=== PATIENT | female | born 1990 | race Caucasian/White ===

== ENCOUNTER 2018-08-03 20:54 | Emergency (ER) | payer BC ==
[~2018-08-03] VITALS: Ht 177.8 cm; Wt 68.2 kg
[2018-08-03 20:57] VITALS: TEMP 98.5
[2018-08-03] MEDS ORDERED: OMEGA-3 1000 MG1 CAP PO (21:29)
[2018-08-03] MEDS ORDERED: PRENATABS FA1 TAB PO (21:30)
[2018-08-03 22:27] VITALS: BP 114/64; PULSE 90
== END 2018-08-03 22:50 | disposition home or self-care (01) ==
LOC: COL.ER 20:54
DX: S02.2XXA Fracture of nasal bones, initial encounter for closed fracture (principal); W21.07XA Struck by softball, initial encounter; Y92.830 Public park as the place of occurrence of the external cause; Y93.64 Activity, baseball

== ENCOUNTER 2019-10-27 15:56 | Emergency (ER) | payer BC ==
[~2019-10-27] VITALS: Ht 177.8 cm; Wt 84.1 kg
[~2019-10-27 15:56] MED LIST: ACYCLOVIR; ANTIVERT 12.512.5 MG PO; BCP TD; OMEGA-3 1000 MG1 CAP PO; PRENATABS FA1 TAB PO
[2019-10-27 16:02] VITALS: TEMP 98.1
--- NOTE | 2019-10-27 17:00 | NUR ---
Patient in ER with complaint of blurred vision, loss of vision, slurred/difficult speech, and numbness/tingling in right arm/hand. Patient said these symptoms lasted around 20-30 minutes following OB appointment today at 1400. Patient currently denies any complaints but is visibly tearful/anxious. , 36.6. Denies any or medical complications. NST obtained. FHR 130s, moderate variability, +accelerations, no decelerations noted. Mild contractions noted by toco, abdomen palpates mild. Patient reports good movement. Audible movement during NST. Patient denies vaginal bleeding, leaking of fluid, cramping/contractions, or any other concerns. Will notify that patient is in ER for evaluation.
[2019-10-27 17:35] LABS: COLLECTION METHOD CLEAN CATCH
[2019-10-27 17:44] LABS: PH 7 (5-8); SQUAMOUS EPITHELIAL None Seen /hpf; URINE APPEARANCE Clear; URINE BACTERIA None Seen /hpf; URINE BILIRUBIN Negative (NEGATIVE); URINE BLOOD Negative (NEGATIVE); URINE COLOR Straw; URINE GLUCOSE Negative (NEGATIVE); URINE KETONE Negative (NEGATIVE); URINE LEUKOCYTE ESTERASE Negative (NEGATIVE); URINE NITRATE Negative (NEGATIVE); URINE PROTEIN(semi-quant) Negative (NEGATIVE); URINE RBC 0-2 /hpf; URINE UROBILINOGEN Negative (NEGATIVE)
[2019-10-27 19:10] VITALS: BP 125/78; PULSE 83
== END 2019-10-27 19:18 | disposition home or self-care (01) ==
LOC: COL.ER 15:56
PROVIDERS: Family Medicine
DX: O26.893 Other specified pregnancy related conditions, third trimester (principal); H54.7 Unspecified visual loss; Z3A.37 37 weeks gestation of pregnancy

== ENCOUNTER 2019-11-17 08:25 | Inpatient (IN) | payer BC ==
[~2019-11-17] VITALS: Ht 177.8 cm; Wt 85.9 kg
[2019-11-20] VITALS (45 sets, daily range): BP systolic 115–164; BP diastolic 56–885; PULSE 60–118; TEMP 97.5–98.4
[2019-11-20] MEDS ORDERED: NATURAL IRON65 MG (07:52)
[2019-11-20 08:26] LABS: HEMOGLOBIN 11.2 g/dl (12.5-16.0); MEAN CELL VOLUME 98 fl (80.0-100.0); MEAN CORPUSCULAR HEMOGLOBIN 33 pg (27.0-31.0); MEAN CORPUSCULAR HGB CONC 34 g/dl (33.0-37.0); MEAN PLATELET VOLUME 10.7 fl (7.4-10.4); PLATELET COUNT 193 K/mm3 (130-400); RED BLOOD COUNT 3.35 M/mm3 (4.10-5.30); REDCELL DISTRIBUTION WIDTH-CV 12.5 % (11.5-14.5)
[2019-11-20 08:27] LABS: HEMATOCRIT 32.7 % (37.0-47.0)
--- NOTE | 2019-11-20 08:47 | NUR ---
0715 - Pt arrives ambulatory to unit with spouse for scheduled induction of labor. Pt changed into gown, EFM explained and placed. Pt anxious, denies leaking of fluid, vaginal bleeding, reports good movement and mild occasional contractions. Assessment complete. IV started in left forearm at 0755, LR started per protocol, Pitocin started at 2mu/ml per protocol. 0805 - Lab to pt bedside to draw labs. Consents discussed and signed. Questions invited and answered. Call light at side, pt denies further needs at this time. 0895 - Dr. Hood notified that pt on unit and pitocin started.
[2019-11-20 08:57] LABS: BAND 16 % (0-10); LYMPHOCYTE 15 % (20.0-51.0); METAMYELOCYTE 2 % (0-0); NEUTROPHILS 66 % (42.0-75.2); PLATELET ESTIMATE NORMAL (NORMAL)
--- NOTE | 2019-11-20 10:04 | NUR ---
0942 - Dr. Hood to pt bedside. Discussed plan of care with pt. AROM by provider at 0947. SVE per provider . Contine current plan.
--- NOTE | 2019-11-20 10:54 | NUR ---
Pt requesting epidural. Padmini Ybarra CRNA notified.
--- NOTE | 2019-11-20 11:14 | NUR ---
Padmini Ybarra CRNA to pt bedside at this time. Discussed epidural with pt, pt desires epidural. Pt repositioned to sitting on bedside, O2 sat monitor on and tracing. 1124 - Epidural test dose given. Pt repositioned to reclined in bed. Pt tolerated procedure well, denies needs at this time.
--- NOTE | 2019-11-20 11:49 | NUR ---
SVE 4-5/90/0. Pt still uncomfortable with check, will insert Wells catheter in about 15 minutes. Pt resting WL.
--- NOTE | 2019-11-20 13:45 | NUR ---
SVE 6/90/0. Pt comfortable with epidural, repositioned to sitting upright in cross legged position. Dr. Hood notified of progress.
--- NOTE | 2019-11-20 15:52 | NUR ---
SVE 8-/0. Dr. Hood notified of progress. See physician notification.
--- NOTE | 2019-11-20 18:43 | NUR ---
1630 - SVE 0. Dr. Hood notified. 1640 - RN at bedside, pushing with pt with contractions. 1650 - Wells removed, 200ml urine. 1730 - Dr. Hood called to check in on pt progress. Report given that pt pushing well, RN can see about 1.5 in of baby's head with push. Dr. Hood on way to unit. 1750 - Dr. Hood at bedside. Orders to break down bed and prepare pt for delivery. Nicholas Ramirez RN of nursery notified. 180 - Viable female delivered spontaneously and placed on mother's abdomen. Nuchal cord x1. Cord blood collected. Care of infant transferred to Nicholas Ramirez RN of nursery. 180 - Placenta delivered spontaneously by Dr. Hood. Red Robbin used by physician, 50ml urine drained from bladder. 2nd degree repair performed by Dr. Hood. pitocin started per protocol. 1814 - Care of pt transferred to Bridger Jean RN.
[2019-11-21 02:30] VITALS: BP 129/76; PULSE 72; TEMP 98.9
[2019-11-21 05:10] VITALS: BP 112/67; PULSE 89; TEMP 98.4
[2019-11-21 07:55] VITALS: BP 127/85; PULSE 72; TEMP 97.8
[2019-11-21 12:45] VITALS: BP 144/88; PULSE 108; TEMP 97.9
[2019-11-21 17:15] VITALS: BP 120/70; PULSE 77; TEMP 97.8
[2019-11-21 18:45] VITALS: BP 122/73; PULSE 82; TEMP 97.9
[2019-11-22] VITALS (9 sets, daily range): BP systolic 120–134; BP diastolic 68–81; PULSE 69–90; TEMP 97.9–98.3
--- NOTE | 2019-11-22 10:25 | NUR ---
Dr Dobbs at bedside and labia examined. Large hematoma noted. Options discussed with pt and and plan is to do I and D of vulvar hematoma. IV started to left hand, LR infusing per Fadia TIN PLATER order. Consent signed. 1110:Pt taken to OR. 1116:TO OR and on table. Prepped and betadine scrub used. I&D of vulvar hematoma and 300cc clot evacuated. Pen Laureen drain placed. Will continue to monitor and ice pack in place. 1202:straight catheter per Dr Dobbs. approximately 1000c urine noted 1215:Pt to stretcher and taken to room 207. Pt alert and oriented.
[2019-11-22 15:48] LABS: BASO # 0.1 (0.0-0.2); BASO % 0.5 % (0.0-2.0); EOS # 0.1 (0.0-0.7); GRAN # 8.9 (1.4-6.5); GRAN % 76.7 % (42.2-75.2); LYMPH # 1.7 (1.2-3.4); LYMPH % 14.6 % (20.0-51.0); MEAN CELL VOLUME 99 fl (80.0-100.0); MEAN CORPUSCULAR HGB CONC 34 g/dl (33.0-37.0); MEAN PLATELET VOLUME 10.4 fl (7.4-10.4); MONO # 0.7 (0.1-0.6); MONO % 6.3 % (1.7-9.3); PLATELET COUNT 186 K/mm3 (130-400); RED BLOOD COUNT 2.67 M/mm3 (4.10-5.30); REDCELL DISTRIBUTION WIDTH-CV 12.8 % (11.5-14.5)
[2019-11-22 15:52] LABS: HEMATOCRIT 26.5 % (37.0-47.0); HEMOGLOBIN 8.9 g/dl (12.5-16.0); MEAN CORPUSCULAR HEMOGLOBIN 33 pg (27.0-31.0)
--- NOTE | 2019-11-23 08:45 | NUR ---
Dr. Ritchie at bedside. Assesses patient, discussing plan of care for drain removal. Patient denies questions. Drain removed by physician without difficulty, see physician documentation. No active bleeding noted following removal. New ice pack applied. Plan of care to monitor over the next several hours and reevaluate patient discharge home at 1200.
[2019-11-23 08:50] VITALS: BP 131/82; PULSE 81; TEMP 98.4
[2019-11-23] MEDS ORDERED: PERCOCET 325 MG1 TA2 PO (08:52)
[2019-11-23] MEDS ORDERED: MOTRIN 800800 MG/TAB PO (08:52)
[2019-11-23] MEDS ORDERED: AMOXICILLIN 8751 TAB PO (08:53)
--- NOTE | 2019-11-23 16:15 | NUR ---
Patient given discharge instructions. Reviewed medications and encouraged to call with questions or concerns. Patient escorted off unit by RN.
== END 2019-11-23 16:15 | disposition home or self-care (01) | DRG 768 ==
LOC: LDR 08:25 → OB 11-20 07:11
PROVIDERS: Obstetrics & Gynecology; ADMIT Obstetrics & Gynecology
PROC: 10E0XZZ Delivery of Products of Conception, External Approach (ICD-10-PCS; principal; 2019-11-20)
PROC: 0U9M00Z Drainage of Vulva with Drainage Device, Open Approach (ICD-10-PCS; 2019-11-20)
PROC: 0KQM0ZZ Repair Perineum Muscle, Open Approach (ICD-10-PCS; 2019-11-20)
PROC: 10907ZC Drainage of Amniotic Fluid, Therapeutic from Products of Conception, Via Natural or Artificial Opening (ICD-10-PCS; 2019-11-20)
DX: O48.0 Post-term pregnancy (principal); Z37.0 Single live birth; O90.89 Other complications of the puerperium, not elsewhere classified; O70.1 Second degree perineal laceration during delivery; O69.81X0 Labor and delivery complicated by cord around neck, without compression, not applicable or unspecified; Z3A.40 40 weeks gestation of pregnancy; Z23 Encounter for immunization; O99.89 Other specified diseases and conditions complicating pregnancy, childbirth and the puerperium; G43.909 Migraine, unspecified, not intractable, without status migrainosus
CPT/HCPCS: J0690; J1885; J2405; J2590; J2704; J3010; J7120

== ENCOUNTER 2022-08-10 06:23 | Inpatient (IN) | payer OTHER ==
[~2022-08-10] VITALS: Ht 177.8 cm; Wt 89.1 kg
[2022-08-10] VITALS (45 sets, daily range): BP systolic 117–140; BP diastolic 65–85; PULSE 63–155; TEMP 97.6–98.8
[~2022-08-10 06:23] MED LIST changes: +AMOXICILLIN 8751 TAB PO; +MOTRIN 800800 MG/TAB PO; +NATURAL IRON65 MG; +PERCOCET 325 MG1 TA2 PO
[2022-08-10] MEDS ORDERED: PRILOSEC10 MG PO (06:55)
--- NOTE | 2022-08-10 07:00 | NUR ---
0630- Pt arrives on unit ambulatory, with spouse, Tyler, for scheduled inducation of labor. Oriented to room. Pt into bathroom, changes into gown. 0643- Pt into bed, EFM and TOCO on and tracing well. VSS. Assessments completed.
--- NOTE | 2022-08-10 07:27 | NUR ---
0710- Dr Cline at bedside. US completed for position, vertex. Questions encouraged, Pt denies at this time. Discussed POC and delay in induction. Pt and spouse verbalize understanding.
[2022-08-10 07:43] LABS: BASO # 0.1 K/mm3 (0.0-0.2); BASO % 0.7 % (0.0-2.0); EOS # 0.1 K/mm3 (0.0-0.7); EOS % 0.8 % (0.0-4.0); GRAN # 4.8 K/mm3 (1.4-6.5); GRAN % 62.9 % (42.2-75.2); HEMOGLOBIN 10.6 g/dl (12.5-16.0); LYMPH # 1.9 K/mm3 (1.2-3.4); LYMPH % 25.1 % (20.0-51.0); MEAN CELL VOLUME 94 fl (80.0-100.0); MEAN CORPUSCULAR HEMOGLOBIN 32 pg (27-31); MEAN CORPUSCULAR HGB CONC 34 g/dl (33.0-37.0); MEAN PLATELET VOLUME 10.4 fl (7.4-10.4); MONO # 0.7 K/mm3 (0.1-0.6); MONO % 9.2 % (1.7-9.3); PLATELET COUNT 250 K/mm3 (130-400); RED BLOOD COUNT 3.33 M/mm3 (4.10-5.30); REDCELL DISTRIBUTION WIDTH-CV 12.8 % (11.5-14.5)
[2022-08-10 07:52] LABS: HEMATOCRIT 31.2 % (37.0-47.0)
--- NOTE | 2022-08-10 12:30 | NUR ---
1216- Pt sitting on side of bed for epidural placement. Ghassan, KENY at bedside. FHR not tracing due to maternal position. O2 sat monitor on and tracing maternal HR. 1227- Test dose, see anesthesia record. 1231- Pt assisted to SF with WL. EMF and TOCO adjusted. O2 sat monitor off.
--- NOTE | 2022-08-10 17:30 | NUR ---
1715- Pt instructed and coached to do practice pushes x3, moderate movement of head with pushing but remains 0 station. Pt stops pushing, repositioned. 1730- Pt assisted to side lying hip release on right side. RN remains at bedside. 1737- Pt assisted to side lying hip release on left side. Dr Cline at bedside to check on Pt. Agrees with plan of care, will remain on unit.
--- NOTE | 2022-08-10 18:00 | NUR ---
1750- Pt begins pushing with UCs, this RN remains at bedside with Pt.
--- NOTE | 2022-08-10 18:33 | NUR ---
1809- MD at bedside, evaluates pushing. 1814- Pt and room prepped for delivery. Pt continues pushing with UCs. 1819- Karely RN at bedside for bedside report. Remains at bedside for delivery. 1832- of viable male . To mother's abd, tended to by nursery RN. Pitocin off. Cord clamped and cut after delay of approx 60 seconds. placed [id number] with mother. 1836- Pitocin restarted at 333ml/hr per [facility]ORB, spontaneous delivery of placenta. Fundus massaged to firm by . 2nd degree repair by . Pericare completed. Clean chux and ice pack to perineum.
--- NOTE | 2022-08-10 19:06 | NUR ---
PT ARM BENT AT TIME OF ASSESSMENT, ATTEMPTS TO BREASTFEED.
--- NOTE | 2022-08-10 20:55 | NUR ---
[employer], EATING DINNER.
--- NOTE | 2022-08-10 21:17 | NUR ---
ASSIST TO RESTROOM VIA BERNABE PERSAUD, JAUN CARE COMPLETED, TOLERATES WELL. TRANSFER TO ROOM VIA WHEELCHAIR AT 2139.
--- NOTE | 2022-08-10 21:30 | NUR ---
EPIDURAL REMOVED, TOLERATES WELL. NO ACTIVE DRAINAGE NOTED, SURROUNDING AREA CLEANED WITH CLOTH AND WATER, OPEN TO AIR.
[2022-08-11 01:41] VITALS: BP 120/72; PULSE 69; TEMP 98.5
[2022-08-11 06:54] LABS: HEMATOCRIT 29.9 % (37.0-47.0); HEMOGLOBIN 9.9 g/dl (12.5-16.0)
[2022-08-11 08:50] VITALS: BP 121/78; PULSE 68; TEMP 98.3
[2022-08-11] MEDS ORDERED: IBU600 MG PO (10:29)
--- NOTE | 2022-08-11 12:50 | NUR ---
[employer] offered congrats while spouse was in room.
[2022-08-11 16:25] VITALS: BP 125/74; PULSE 75; TEMP 98.7
[2022-08-11 19:15] VITALS: BP 135/76; PULSE 73; TEMP 98
--- NOTE | 2022-08-11 20:00 | NUR ---
1999- DISCHARGE INSTRUCTIONS GIVEN AND QUESTIONS ANSWERED. PT VERBALIZES UNDERSTANDING AND SIGNS PAPERWORK. 2009- PT DISMISSED TO HOME AMBULATORY ACCOMPANIED BY SPOUSE AND BABY IN [place].
== END 2022-08-11 20:10 | disposition home or self-care (01) | DRG 807 ==
LOC: LDR 06:23 → OB 15:13
PROVIDERS: ADMIT Obstetrics & Gynecology
PROC: 10E0XZZ Delivery of Products of Conception, External Approach (ICD-10-PCS; principal; 2022-08-10)
PROC: 0KQM0ZZ Repair Perineum Muscle, Open Approach (ICD-10-PCS; 2022-08-10)
PROC: 10907ZC Drainage of Amniotic Fluid, Therapeutic from Products of Conception, Via Natural or Artificial Opening (ICD-10-PCS; 2022-08-10)
PROC: 3E033VJ Introduction of Other Hormone into Peripheral Vein, Percutaneous Approach (ICD-10-PCS; 2022-08-10)
DX: O48.0 Post-term pregnancy (principal); Z37.0 Single live birth; Z3A.40 40 weeks gestation of pregnancy; O70.1 Second degree perineal laceration during delivery; Z23 Encounter for immunization
CPT/HCPCS: J2590; J7120